=== PATIENT | female | born 1955 | race Caucasian/White ===

== ENCOUNTER → 2017-06-19 | Outpatient (CLI) | payer OTHER ==
--- NOTE | 2017-06-19 13:45 | RAD ---
2 views of the Chest 06/19/2017 2:00 AM Indication: SHORT OF AIR Comparison: Chest radiograph January 23, 2006 Findings: The lungs appear mildly hyperinflated with mild flattening of the hemidiaphragms. Bullous changes and scarring. Present the lung apices. Findings are consistent with emphysema. Bony thorax is intact. Impression: Emphysematous changes. No other acute cardiopulmonary process is identified
== END | disposition home or self-care (01) ==
LOC: DXRAD 13:27
PROVIDERS: ATTEND Nurse Practitioner
DX: J44.1 Chronic obstructive pulmonary disease with (acute) exacerbation (principal)
CPT/HCPCS: 71046

== ENCOUNTER 2019-09-07 23:20 | Inpatient (IN) | payer MEDICARE, OTHER ==
[~2019-09-07] VITALS: Ht 157.5 cm; Wt 45.6 kg
[2019-09-08] VITALS (12 sets, daily range): BP systolic 98–130; BP diastolic 64–99
[2019-09-08] MEDS ORDERED: methylPREDNISolone SOD SUCC PF 125 MG/2 ML VIAL. IV ONE
[2019-09-08] MEDS ORDERED: IV NORMAL SALINE 1,000ML 1,000 ML IV ONE
[2019-09-08] MEDS ORDERED: IV NORMAL SALINE 50ML 50 ML ONE (00:06)
[2019-09-08] MEDS ORDERED: cefTRIAXone SODIUM 1 GM VIAL ONE (00:06)
--- NOTE | 2019-09-08 00:16 | PHYS DOC ---
Past History Past Medical History: COPD Past Surgical History: Tubal ligation Alcohol Use: None General Adult EDM: Chief Complaint: FEVER HPI: HPI: Patient is a 64 year old female who presents for evaluation of fever, cough with productive green sputum and shortness of air. Onset over the past 3 days. Patient had an elevated temp of 99 7 in triage. She has a history of COPD and her oxygen sats were 86 to 90% in triage. On 2 L oxygen she was above 90%. Patient been using home nebulizer treatments and albuterol metered dose inhaler with min improvement of symptoms. Patient in mild to early moderate conversational dyspnea on arrival. There is no known obvious COVID exposure. Review of Systems: Review of Systems: Constitutional: has fever and chills Eyes: Denies change in visual acuity HENT: has nasal congestion, no sore throat Respiratory: green prod cough and shortness of breath Cardiovascular: Denies chest pain or edema GI: Denies abdominal pain, nausea, vomiting, bloody stools or diarrhea : Denies dysuria Musculoskeletal: Denies back pain or joint pain, has body aches Integument: Denies rash Neurologic: Denies headache, focal weakness or sensory changes Endocrine: Denies polyuria or polydipsia Lymphatic: Denies swollen glands Psychiatric: Denies depression or anxiety Heart Score: HEART Score for Chest Pain: HEART Score for Chest Pain Response (Comments) Value History Slighlty/Non-Suspicious 0 ECG Normal 0 Age > 65 2 Risk Factors 1 or 2 Risk Factors 1 Troponin < Normal Limit 0 Total 3 Risk Factors: Risk Factors: DM, Current or recent (<one month) smoker, HTN, HLP, family history of CAD, obesity. Risk Scores: Score 0 - 3: 2.5% MACE over next 6 weeks - Discharge Home Score 4 - 6: 20.3% MACE over next 6 weeks - Admit for Clinical Observation Score 7 - 10: 72.7% MACE over next 6 weeks - Early Invasive Strategies Current Medications: Current Meds: Current Medications Medications (Trade) Dose Ordered Sig/Angie Start Time Stop Time Status Last Admin Dose Admin Ceftriaxone Sodium 1 gm/ Sodium Chloride 50 ml @ 100 mls/hr 1X ONCE 09/08/19 00:00 09/08/19 00:29 UNV Ceftriaxone Sodium (Rocephin) 1 gm STK-MED ONCE 09/08/19 00:06 09/08/19 00:06 DC Methylprednisolone Sodium Succinate (SOLU-Medrol 125MG VIAL) 125 mg 1X ONCE 09/08/19 00:00 09/08/19 00:01 UNV Sodium Chloride 50 ml @ As Directed STK-MED ONCE 09/08/19 00:06 09/08/19 00:06 DC Allergies: Allergies: Allergies Coded Allergies Type Severity Reaction Last Updated Verified No Known Allergies Allergy Unknown 09/08/19 Yes Physical Exam: PE: Constitutional: Well developed, well nourished, moderate distress, con versational dyspnea. [] HENT: Normocephalic, atraumatic, bilateral external ears normal, oropharynx moist, no oral exudates, nose normal. [] Eyes: PERRL, EOMI, conjunctiva normal, no discharge. [] Neck: Normal range of motion, no tenderness, supple, no stridor. [] Cardiovascular:Heart rate regular rhythm, murmur [] Lungs & Thorax: Bilateral breath sounds clear diminshed but equal, wheezing present to auscultation [] Abdomen: Bowel sounds normal, soft, no tenderness, no masses, no pulsatile masses. [] Skin: Warm, dry, no erythema, no rash. [] Back: No tenderness. [] Extremities: No tenderness, no cyanosis, ROM intact, no edema. [] Neurologic: Alert and oriented X 3, normal motor function, normal sensory function, no focal deficits noted. [] Psychologic: Affect normal, judgement normal, anxious mood. [] Current Patient Data: Labs: Laboratory Tests Test 09/08/19 00:18 09/08/19 00:20 Urine Collection Type Unknown Urine Color Yellow Urine Clarity Clear Urine pH 6.5 Urine Specific [place] 1.020 Urine Protein 100 mg/dl Urine Glucose (UA) Neg mg/dL Urine Ketones (Stick) Neg mg/dL Urine Blood Trace Urine Nitrite Neg Urine Bilirubin Neg Urine Urobilinogen Dipstick 4.0 mg/dL Urine Leukocyte Esterase Trace Urine RBC Rare /HPF Urine WBC 1-4 /HPF Urine Squamous Epithelial Cells Mod /LPF Urine Bacteria Few /HPF White Blood Count 16.4 x10^3/uL Red Blood Count 4.62 x10^6/uL Hemoglobin 12.9 g/dL Hematocrit 40.1 % Mean Corpuscular Volume 87 fL Mean Corpuscular Hemoglobin 28 pg Mean Corpuscular Hemoglobin Concent 32 g/dL Red Cell Distribution Width 15.1 % Platelet Count 330 x10^3/uL Neutrophils (%) (Auto) 89 % Lymphocytes (%) (Auto) 5 % Monocytes (%) (Auto) 6 % Eosinophils (%) (Auto) 0 % Basophils (%) (Auto) 0 % Neutrophils # (Auto) 14.5 x10^3uL Lymphocytes # (Auto) 0.8 x10^3/uL Monocytes # (Auto) 1.0 x10^3/uL Eosinophils # (Auto) 0.0 x10^3/uL Basophils # (Auto) 0.0 x10^3/uL Segmented Neutrophils % 84 % Band Neutrophils % 7 % Lymphocytes % 3 % Monocytes % 6 % Platelet Estimate Adequate Sodium Level 136 mmol/L Potassium Level 3.4 mmol/L Chloride Level 97 mmol/L Carbon Dioxide Level 32 mmol/L Anion Gap 7 Blood Urea Nitrogen 7 mg/dL Creatinine 0.6 mg/dL Estimated GFR (Cockcroft-Gault) 100.0 BUN/Creatinine Ratio 12 Glucose Level 178 mg/dL Lactic Acid Level 1.2 mmol/L Calcium Level 8.8 mg/dL Total Bilirubin 0.3 mg/dL Aspartate Amino Transf (AST/SGOT) 30 U/L Alanine Aminotransferase (ALT/SGPT) 29 U/L Alkaline Phosphatase 143 U/L Troponin I Quantitative < 0.017 ng/mL Total Protein 6.6 g/dL Albumin 2.9 g/dL Albumin/Globulin Ratio 0.8 Current Medications Medications (Trade) Dose Ordered Sig/Angie Route PRN Reason Start Time Stop Time Status Last Admin Dose Admin Methylprednisolone Sodium Succinate (SOLU-Medrol 125MG VIAL) 125 mg 1X ONCE IV 09/08/19 00:00 09/08/19 00:01 UNV 09/08/19 00:00 Sodium Chloride 1,000 ml @ 75 mls/hr 1X ONCE IV 09/08/19 00:00 09/08/19 13:19 UNV 09/08/19 00:00 Ceftriaxone Sodium 1 gm/ Sodium Chloride 50 ml @ 100 mls/hr 1X ONCE IV 09/08/19 00:00 09/08/19 00:29 UNV 09/08/19 00:00 Ceftriaxone Sodium (Rocephin) 1 gm STK-MED ONCE .ROUTE 09/08/19 00:06 09/08/19 00:06 DC Sodium Chloride 50 ml @ As Directed STK-MED ONCE .ROUTE 09/08/19 00:06 09/08/19 00:06 DC Albuterol Sulfate (Ventolin) 2.5 mg 1X ONCE NEB 09/08/19 01:30 09/08/19 01:31 UNV Albuterol Sulfate (Ventolin Hfa Inhaler) 2 puff 1X ONCE INH 09/08/19 01:30 09/08/19 01:31 UNV 09/08/19 01:34 Vital Signs: Vital Signs Date Time Temp Pulse Resp B/P (MAP) Pulse Ox O2 Delivery O2 Flow Rate FiO2 09/07/19 23:30 99.7 127 24 145/100 (115) 86 Room Air EKG: EKG: EKG sinus tachycardia rate 115, read at 12:15 AM, otherwise unremarkable EKG, not STEMI [] Radiology/Procedures: Radiology/Procedures: CXR: copd changes, interstitial infilrates[] Course & Med Decision Making: Course & Med Decision Making Pertinent Labs and Imaging studies reviewed. (See chart for details) [] Dragon Disclaimer: Dragon Disclaimer: This electronic medical record was generated, in whole or in part, using a voice recognition dictation system. [id number] hospitalist service was contacted and patient will be admitted under Dr. Burks. Patient's breathing has started to worsen so albuterol metered-dose inhaler ordered. Some improvement with Solu-Medrol. Patient treated with Rocephin 0142 Dr. Burks updated on pt's breathing status. Will put her on bipap as requested. IV Zithromax has been added as well. Patient will be managed in ICU bed Departure Departure: Impression: Primary Impression: CAP (community acquired pneumonia) Additional Impressions: COPD with exacerbation Person under investigation for COVID-19 Disposition: ADMITTED INPATIENT Admitting Physician: James Burks Condition: STABLE Referrals: GURINDER AGUILERA (PCP) Justification of Admission: Justification of Admission: Justification of Admission Dx: Yes Respiratory Failure: Severe Resp Distress COVID-19 Assessment COVID-19 Patient Risks: Age 65 or older: Yes Sign of co-morbidity: Yes Exp to person + for COVID: No Exp to PUI: No Travel from affected area: No Lower respiratory symptoms: Yes Fever: Yes Other: No PPE Use: Full PPE with N95 mask or PAPR: Yes (gloves and face shield) Critical Care Time Critical care time was 30 minutes exclusive of procedures. QUINCY OWENS DO Sep 08, 2019 00:16
[2019-09-08 01:10] LABS: BASO % 0 % (0-3); EOS % 0 % (0-3); HEMATOCRIT 40.1 % (36.0-47.0); HEMOGLOBIN 12.9 g/dL (12.0-15.5); LYMPH # 0.8 x10^3/uL (1.0-4.8); LYMPH % 5 % (24-48); MEAN CORPUSCULAR HEMOGLOBIN 28 pg (25-35); MEAN CORPUSCULAR HGB CONC 32 g/dL (31-37); MEAN CORPUSCULAR VOLUME 87 fL (79-100); MONO % 6 % (0-9); NEUT # 14.5 x10^3uL (1.8-7.7); NEUT % 89 % (31-73); PLATELET COUNT 330 x10^3/uL (140-400); RED BLOOD COUNT 4.62 x10^6/uL (3.50-5.40); RED CELL DISTRIBUTION WIDTH 15.1 % (11.5-14.5); WHITE BLOOD COUNT 16.4 x10^3/uL (4.0-11.0)
[2019-09-08 01:17] LABS: CALCIUM 8.8 mg/dL (8.5-10.1); CREATININE 0.6 mg/dL (0.6-1.0); POTASSIUM 3.4 mmol/L (3.5-5.1)
[2019-09-08 01:20] LABS: BACTERIA,URINE FEW /HPF (0-FEW); BILIRUBIN,URINE NEG (NEG); CLARITY,URINE CLEAR; COLOR,URINE YELLOW; GLUCOSE,URINE NEG (NEG); NITRITE,URINE NEG (NEG); RBC,URINE RARE /HPF (0-2); SQUAMOUS EPITHELIAL CELL,UR MOD /LPF
[2019-09-08] MEDS ORDERED: ALBUTEROL SULFATE 8GM INHALER. INH ONE (01:30)
[2019-09-08 01:32] LABS: ALBUMIN 2.9 g/dL (3.4-5.0); ALBUMIN/GLOBULIN RATIO 0.8 (1.0-1.7); TOTAL BILIRUBIN 0.3 mg/dL (0.2-1.0); TOTAL PROTEIN 6.6 g/dL (6.4-8.2)
[2019-09-08 01:40] LABS: % BANDS 7 % (0-9); % LYMPHS 3 % (24-48); % MONOS 6 % (0-10); % SEGS 84 % (35-66); PLT ESTIMATE ADEQUATE (ADEQUATE)
[2019-09-08] MEDS ORDERED: ALBUTEROL SULFATE 2.5 MG/3 ML NEBU. NEB ONE (01:45)
[2019-09-08] MEDS ORDERED: AZITHROMYCIN 500 MG in IV NORMAL SALINE 250ML 250 ML IV ONE (02:00)
[2019-09-08] MEDS ORDERED: ONDANSETRON PF 4 MG/2 ML VIAL. IVP PRN (02:00)
[2019-09-08] MEDS ORDERED: IV NORMAL SALINE 250ML 250 ML ONE (02:20)
[2019-09-08] MEDS ORDERED: AZITHROMYCIN 500 MG VIAL. IV ONE (02:20)
[2019-09-08 02:32] LABS: BGAS PH 7.42 (7.35-7.45)
--- NOTE | 2019-09-08 02:41 | RAD ---
EXAM: CHEST ONE VIEW. HISTORY: Shortness of breath, cough. COMPARISON: 06/10/2018. FINDINGS: A frontal view of the chest is obtained. Hyperinflation is consistent with chronic obstructive pulmonary disease. There are mild interstitial opacities in the left base and perihilar regions. There is no pneumothorax or pleural effusion. The heart is not enlarged. IMPRESSION: 1. Correlate for atypical pneumonia or mild pulmonary edema superimposed on chronic obstructive pulmonary disease. Electronically signed by: Micheal Cortes MD (09/08/2019 2:38 AM) [facility]
[2019-09-08] MEDS ORDERED: ALBU2.5V8 IH (03:38)
[2019-09-08] MEDS ORDERED: ALBU2.5V8 INH (03:38)
--- NOTE | 2019-09-08 05:06 | EKG ---
[address] [address] Test Date: 2019-09-08 Test Time: 00:10:49 Pat Name: JUSTICE FERNANDEZ Department: Room: Gender: F Fudger: : 1955 Requested By: QUINCY OWENS Order Number: [id number] Reading MD: Measurements Intervals [place] Rate: 115 P: 66 LA: 140 QRS: 90 QRSD: 98 T: 69 QT: 290 QTc: 403 Interpretive Statements SINUS TACHYCARDIA OTHERWISE NORMAL ECG RI6.02 No previous ECG available for comparison
[2019-09-08] MEDS ORDERED: POTASSIUM CHLORIDE 20 MEQ TABLET.ER. PO ONE (08:30)
[2019-09-08] MEDS ORDERED: ALBUTEROL SULFATE 2.5 MG/3 ML NEBU. NEB PRN (14:45)
--- NOTE | 2019-09-08 14:48 | HP ---
ADMIT DATE: 09/08/2019 HISTORY OF PRESENT ILLNESS: The patient is a 64-year-old female patient who came to the Emergency Room complaining of fever, cough with yellowish to greenish sputum and shortness of breath that has been going on for the last 3 days. The patient is known to have history of COPD. On arrival, her oxygen was only 86% on 2 liters of oxygen. She was above 90%. The patient has been using her home nebulizer treatment and albuterol metered dose inhaler with minimal improvement of her symptoms. When she came to the Emergency Room, she was unable to finish sentence. She has no known obvious COVID exposure. She apparently works for [employer] and [employer] and has been exposed to dust. She has never been on oxygen at home, never had any sleep study, was admitted before once for pneumonia which never required any intubation and mechanical ventilation. She was evaluated in the Emergency Room and was found to be obviously hypoxic on room air, temperature was slightly elevated at 99.7. She has leukocytosis, white cell count of 16,400. Her blood gases were unremarkable. Her chemistry was also unremarkable. Lactic acid is only 1.2. Her urinalysis was also unremarkable; however, her chest x-ray showed that she has interstitial opacities in the left base and perihilar region consistent with atypical pneumonia or mild pulmonary edema. The patient was admitted, diagnosed with acute hypoxic respiratory failure, community-acquired pneumonia and COPD exacerbation. PAST MEDICAL HISTORY: Significant for COPD. No other medical problems. PAST SURGICAL HISTORY: Significant for tubal ligation. ALLERGIES: She has no known drug allergies. MEDICATIONS: She is currently on albuterol sulfate 1 puff every 4 hours. FAMILY HISTORY: Noncontributory. SOCIAL HISTORY: She lives alone, has 4 children, one of them lives around here. She does not smoke, does not drink alcohol or use any recreational drugs. REVIEW OF SYSTEMS: As per history of present illness. PHYSICAL EXAMINATION: GENERAL: When I examined her, she looked slightly tachypneic and somewhat cachectic. There is no pallor, jaundice, cyanosis or thyromegaly. No jugular venous distention. No lower limb edema. VITAL SIGNS: Her heart rate on arrival was 127, blood pressure was 145/100, temperature was 99.7, respiratory rate 24 and oxygen saturation was 86% on room air that improved to 99% on 2 liters of oxygen. HEAD, EYES, EARS, NOSE AND THROAT: Showed normocephalic, atraumatic. NECK: Supple. CARDIAC: Normal first and second heart sounds. No gallop or murmur. CHEST: Shows central trachea, equally reduced expansion, reduced air entry, expands with crepitation mostly in the left side posteriorly. She has bilateral scattered rhonchi. ABDOMEN: Scaphoid, soft, nontender. NEUROLOGIC: She is awake, alert, responding appropriately. All cranial nerves intact. EXTREMITIES: She moves extremities without difficulty, although she has marked muscle wasting and weakness. LABORATORY DATA: Her white cell count was 16,400, hemoglobin 12.9, hematocrit 40, MCV 87 and platelet count 330,000. Serum sodium was 136, potassium 3.4, chloride 97, bicarbonate 32, anion gap of 7, BUN 7, creatinine 0.6, estimated GFR was 100 mL per minute. Her glucose 178, calcium was 8.8. Total bilirubin, AST, ALT normal. Alkaline phosphatase slightly elevated. Troponin was less than 0.017. Total protein was 6.6, albumin was 2.9. Her blood gases showed a pH of 7.42, pCO2 of 40, pO2 of 85, bicarbonate 26 and oxygen saturation was 97% on FiO2 of 28%. Her urinalysis showed the urine was yellow, clear with a pH of 6.5, specific gravity 1.020. There was large amount of protein. The urine was negative for glucose, ketones. There was trace of blood, negative for nitrite and bilirubin, trace of leukocyte esterase, rare rbc's, 1-4 wbc's, very few bacteria. Her chest x-ray showed that the patient has hyperinflation consistent with chronic obstructive pulmonary disease. There are mild interstitial opacities in the left base and perihilar region. There is no pneumothorax or pleural effusion. The heart is not enlarged. ASSESSMENT AND PLAN: The patient was admitted with community-acquired pneumonia, acute hypoxic respiratory failure and chronic obstructive pulmonary disease exacerbation. She was treated with ceftriaxone and Zithromax, did receive methylprednisolone, sodium succinate 125 mg once. Plan is to continue with IV antibiotic. Continue with bronchodilator. Continue with steroids. PALMIRA REN MD DR: BRITTNI/carlos JOB#: [id number] / [id number]
[2019-09-08] MEDS ORDERED: IPRATRPIUM/ALBUTEROL 0.5/2.5MG 3 ML NEBU. NEB SCH (16:00)
[2019-09-08] MEDS ORDERED: ALBUTEROL SULFATE 8GM INHALER. INH PRN (16:00)
[2019-09-08] MEDS ORDERED: methylPREDNISolone SOD SUCC PF 40 MG/ML VIAL. IV ONE (18:00)
[2019-09-08] MEDS: IPRATROPIUM/ALBUTEROL 20/100mcg/INH INHALER. INH SCH ×2 (18:44→21:04)
[2019-09-08] MEDS: MONTELUKAST 10 MG TABLET. PO SCH (21:06)
[2019-09-08] MEDS: methylPREDNISolone SOD SUCC PF 40 MG/ML VIAL. IV SCH (21:06)
[2019-09-08] MEDS: LACTOBACILLUS RHAMNOSUS GG 1 CAPSULE. PO SCH (21:06)
[2019-09-09 00:51] VITALS: BP 119/71
[2019-09-09 04:57] LABS: HEMATOCRIT 38.8 % (36.0-47.0); HEMOGLOBIN 12.5 g/dL (12.0-15.5); RED BLOOD COUNT 4.44 x10^6/uL (3.50-5.40); RED CELL DISTRIBUTION WIDTH 14.9 % (11.5-14.5); WHITE BLOOD COUNT 16.3 x10^3/uL (4.0-11.0)
[2019-09-09 05:06] LABS: CALCIUM 8.9 mg/dL (8.5-10.1); CREATININE 0.7 mg/dL (0.6-1.0); GFR 83.7; POTASSIUM 4.2 mmol/L (3.5-5.1)
[2019-09-09 05:58] VITALS: BP 122/78
[2019-09-09] MEDS: methylPREDNISolone SOD SUCC PF 40 MG/ML VIAL. IV SCH ×3 (06:09→21:28)
[2019-09-09] MEDS: LACTOBACILLUS RHAMNOSUS GG 1 CAPSULE. PO SCH ×2 (07:41→21:28)
[2019-09-09] MEDS: AZITHROMYCIN 250 MG TABLET. PO SCH (07:41)
[2019-09-09] MEDS: IPRATROPIUM/ALBUTEROL 20/100mcg/INH INHALER. INH SCH ×2 (07:41→12:15)
[2019-09-09 11:07] VITALS: BP 134/77
[2019-09-09 14:28] VITALS: BP 127/76
[2019-09-09] MEDS: IPRATRPIUM/ALBUTEROL 0.5/2.5MG 3 ML NEBU. NEB SCH ×2 (16:21→20:39)
--- NOTE | 2019-09-09 19:23 | PN ---
DATE: 09/09/2019 SUBJECTIVE: The patient is resting slightly propped up in bed, slightly tachypneic. On questioning her, she continued to have cough with yellowish sputum. Denied any chest pain, denied any chills, rigors, or fever. Denied any orthopnea or paroxysmal nocturnal dyspnea. PHYSICAL EXAMINATION: GENERAL: When I examined her, she was resting slightly propped up in bed, in no apparent respiratory distress. No pallor, jaundice, cyanosis or thyromegaly. No jugular venous distension. No lower limb edema. VITAL SIGNS: Her heart rate was 90, blood pressure was 127/76, temperature was 96.9, respiratory rate was 24, and oxygen saturation was 97% on 2 liters of oxygen. HEAD, EYES, EARS, NOSE AND THROAT: Showed she is normocephalic, atraumatic. NECK: Supple. HEART: Showed normal first and second heart sounds. No gallop or murmur. CHEST: Shows central trachea, equal bilateral expansion, air entry expands with crepitation mostly in the left side posteriorly. She has also scattered rhonchi definitely less than yesterday. ABDOMEN: Slightly distended, soft, nontender. NEUROLOGIC: She is awake, alert, responding appropriately. All cranial nerves are intact. She moves extremities without difficulty. LABORATORY DATA: Her lab work this morning showed a white cell count of 16,300, hemoglobin 12.5, hematocrit 38.8, MCV 87 and platelet count of 374,000. Her chemistry showed a serum sodium 140, potassium 4.2, chloride 104, bicarbonate 30, anion gap of 6, BUN 12, creatinine 0.7, estimated GFR was 84 mL per minute. Her glucose 183, calcium was 8.9. Her COVID-19 by PCR was not detected. Urinalysis was unremarkable. Her chest x-ray showed atypical pneumonia, mild pulmonary edema, superimposed on chronic obstructive pulmonary disease. ASSESSMENT: 1. Acute hypoxic respiratory failure. 2. Chronic obstructive pulmonary disease exacerbation. 3. Community-acquired pneumonia. PLAN: To continue with IV Solu-Medrol 60 mg IV every 8 hours. Continue with ceftriaxone 1 g IV daily together with Zithromax 250 mg daily. She is on montelukast 10 mg once a day and albuterol sulfate by nebulizer every 2 hours, DuoNeb 4 times a day. PALMIRA REN MD DR: Nickolas JOB#: [id number] / [id number]
[2019-09-09 20:02] VITALS: BP 147/83
[2019-09-09] MEDS: MONTELUKAST 10 MG TABLET. PO SCH (21:28)
[2019-09-09] MEDS ORDERED: ACETAMINOPHEN 325 MG TABLET PO PRN (22:30)
[2019-09-10 00:34] VITALS: BP 158/81
[2019-09-10] MEDS: IPRATRPIUM/ALBUTEROL 0.5/2.5MG 3 ML NEBU. NEB SCH ×4 (05:28→20:43)
[2019-09-10] MEDS: methylPREDNISolone SOD SUCC PF 40 MG/ML VIAL. IV SCH ×3 (06:00→20:43)
[2019-09-10 06:04] VITALS: BP 133/81
[2019-09-10 06:05] LABS: HEMATOCRIT 40.1 % (36.0-47.0); HEMOGLOBIN 12.8 g/dL (12.0-15.5); RED BLOOD COUNT 4.6 x10^6/uL (3.50-5.40); RED CELL DISTRIBUTION WIDTH 14.8 % (11.5-14.5); WHITE BLOOD COUNT 16.2 x10^3/uL (4.0-11.0)
[2019-09-10 06:20] LABS: CALCIUM 8.7 mg/dL (8.5-10.1); CREATININE 0.7 mg/dL (0.6-1.0); GFR 83.7; POTASSIUM 4.1 mmol/L (3.5-5.1)
[2019-09-10] MEDS: AZITHROMYCIN 250 MG TABLET. PO SCH (08:45)
[2019-09-10] MEDS: LACTOBACILLUS RHAMNOSUS GG 1 CAPSULE. PO SCH ×2 (08:45→20:43)
--- NOTE | 2019-09-10 10:27 | RAD ---
EXAM: CHEST PA LATERAL 09/10/2019 8:00 AM CLINICAL INDICATION:Acute hypoxic respiratory failure COMPARISON:Chest radiograph 2019 TECHNIQUE:PA and lateral views of the chest FINDINGS:The heart is normal size. Central pulmonary arteries are prominent, unchanged. The lungs are hyperexpanded. Bilateral interstitial prominence has decreased. There are decreased but persistent mild interstitial opacities in the left lung base and left costophrenic sulcus. No pleural effusion or pneumothorax. No acute osseous abnormality. IMPRESSION:Decreased but persistent mild interstitial opacities in the left lung base. COPD. Electronically signed by: Nivia Hoffmann MD (09/10/2019 10:24 AM) [id number]
[2019-09-10 10:41] VITALS: BP 156/89
--- NOTE | 2019-09-10 13:11 | RAD ---
PQRS Compliance Statement: One or more of the following individualized dose reduction techniques were utilized for this examination: 1. Automated exposure control 2. Adjustment of the mA and/or kV according to patient size 3. Use of iterative reconstruction technique CT CHEST WO CONTRAST 09/10/2019 12:20 PM Indication: Worsening shortness of breath COMPARISON: None available. TECHNIQUE: Multiple axial CT images of the chest were obtained without venous contrast. Coronal and sagittal reformats are provided. FINDINGS: Nodular consolidative process in the right lung apex most favors scarring, stable from 01/20/2006. There is moderate centrilobular pulmonary emphysema. Tree-in-bud nodular airspace disease noted in the left lower lobe and to a lesser extent right lower lobe. Similar findings are identified previously seen 2005. No new or enlarging solid noncalcified pulmonary nodules. No pleural effusions, pulmonary vascular congestion or pneumothorax. Thyroid gland is normal in appearance. Precarinal lymph node measures 11 mm. Ascending thoracic aorta measures 4.0 cm, ectatic. Heart size within normal limits. Visualized portions of the upper abdomen are within normal limits within the limitations of noncontrast examination. No suspicious osseous abnormality is identified. IMPRESSION: 1. Moderate centrilobular pulmonary emphysema with hyperinflation lungs compatible COPD changes. 2. No new or enlarging solid noncalcified pulmonary nodules identified. 3. Tree-in-bud nodular airspace disease noted in the lower lobes bilaterally. Differential considerations include small airways inflammation versus respiratory bronchiolitis interstitial lung disease. 4. Ectasia of the ascending thoracic aorta measuring up to 4.0 cm. Electronically signed by: Shruthi Quispe MD (09/10/2019 1:09 PM) [facility]
[2019-09-10 15:20] VITALS: BP 147/83
--- NOTE | 2019-09-10 16:27 | PN ---
DATE: 09/10/2019 SUBJECTIVE: The patient is resting, slightly propped up in bed, in no apparent distress. She continued to be somewhat tachypneic. She stated that she had cough the whole night, though the cough is dry. She stated that she is feeling much better. She continued to require oxygen. OBJECTIVE: GENERAL: When I saw her today, she was slightly tachypneic, but there was no pallor, jaundice, cyanosis, thyromegaly, jugular venous distention. No limb edema. VITAL SIGNS: Her heart rate was 95, blood pressure 156/89, temperature was 98.3, respiratory rate was 22 and oxygen saturation was 95% on 2 liters of oxygen. HEAD, EYES, EARS, NOSE AND THROAT: Normocephalic, atraumatic. NECK: Supple. HEART: Showed normal first and second heart sounds. No gallop, rub or murmur. CHEST: Showed central trachea, equally reduced expansion, reduced air entry, vesicular sounds. I could not really appreciate any crepitation or rhonchi. ABDOMEN: Distended, soft, nontender. NEUROLOGIC: She is awake, alert, responding appropriately. All cranial nerves intact. She moves extremities without difficulty. She is grossly intact. Her intake was 1630, output was incompletely recorded. LABORATORY DATA: Her lab work this morning showed a white cell count of 16,200, hemoglobin 12.8, hematocrit 40, MCV 87 and platelet count of 455,000. Her chemistry showed a serum sodium 140, potassium 4.1, chloride 103, bicarbonate 32, anion gap of 5, BUN 12, creatinine 0.7. Estimated GFR was 84 mL per minute. Her glucose was 139 and calcium was 8.7. Her COVID-19 by PCR not detected and urinalysis was essentially unremarkable. Her blood cultures are so far negative and showed no growth after 2 days. ASSESSMENT: 1. Community-acquired pneumonia, for which she continues to be on ceftriaxone and Zithromax. 2. Chronic obstructive pulmonary disease exacerbation, for which she is on steroids and inhaler as well as Singulair and added Mucinex. 3. Acute hypoxic respiratory failure. The patient continued to be tachypneic requiring 2 liters of oxygen. Her chest x-ray, PA and lateral views showed that the patient's heart size is normal. Central pulmonary arteries are prominent, unchanged. The lungs are hyperexpanded. She has bilateral interstitial prominence. Her bilateral interstitial prominence has decreased, but persistent mild interstitial opacities in the left lung base and left costophrenic sulcus. No pleural effusion or pneumothorax. No acute osseous abnormality. PLAN: I added Mucinex. We will continue with all other medications. The patient does not seem to be ready to go home given the tachypnea and hypoxia. I will arrange for her to have a CT angio of the chest and would decide on further management accordingly. PALMIRA REN MD DR: BRITTNI/carlos JOB#: [id number] / [id number]
[2019-09-10 19:24] VITALS: BP 158/90
[2019-09-10] MEDS: MONTELUKAST 10 MG TABLET. PO SCH (20:43)
[2019-09-10 22:21] VITALS: BP 157/90
[2019-09-11] MEDS: IPRATRPIUM/ALBUTEROL 0.5/2.5MG 3 ML NEBU. NEB SCH ×4 (05:29→20:23)
[2019-09-11 05:34] VITALS: BP 145/85
[2019-09-11] MEDS: methylPREDNISolone SOD SUCC PF 40 MG/ML VIAL. IV SCH ×2 (05:36→14:18)
[2019-09-11] MEDS: AZITHROMYCIN 250 MG TABLET. PO SCH (09:09)
[2019-09-11] MEDS: LACTOBACILLUS RHAMNOSUS GG 1 CAPSULE. PO SCH ×2 (09:09→20:59)
[2019-09-11 10:49] VITALS: BP 149/87
[2019-09-11 11:42] LABS: BASO # 0.1 x10^3/uL (0.0-0.2); BASO % 0 % (0-3); EOS % 0 % (0-3); HEMATOCRIT 43.3 % (36.0-47.0); HEMOGLOBIN 14.3 g/dL (12.0-15.5); LYMPH # 0.8 x10^3/uL (1.0-4.8); LYMPH % 5 % (24-48); MEAN CORPUSCULAR HEMOGLOBIN 29 pg (25-35); MEAN CORPUSCULAR HGB CONC 33 g/dL (31-37); MEAN CORPUSCULAR VOLUME 87 fL (79-100); MONO # 0.9 x10^3/uL (0.0-1.1); MONO % 6 % (0-9); NEUT # 14.6 x10^3uL (1.8-7.7); NEUT % 89 % (31-73); PLATELET COUNT 534 x10^3/uL (140-400); RED CELL DISTRIBUTION WIDTH 15.2 % (11.5-14.5); WHITE BLOOD COUNT 16.3 x10^3/uL (4.0-11.0)
[2019-09-11 11:55] LABS: ALBUMIN 2.9 g/dL (3.4-5.0); ALBUMIN/GLOBULIN RATIO 0.7 (1.0-1.7); CALCIUM 9.1 mg/dL (8.5-10.1); CREATININE 0.8 mg/dL (0.6-1.0); GFR 71.8; POTASSIUM 4.3 mmol/L (3.5-5.1); TOTAL BILIRUBIN 0.2 mg/dL (0.2-1.0); TOTAL PROTEIN 7.2 g/dL (6.4-8.2)
[2019-09-11 15:00] VITALS: BP 146/90
[2019-09-11 16:24] LABS: BGAS PH 7.45 (7.35-7.45)
[2019-09-11] MEDS: methylPREDNISolone SOD SUCC PF 125 MG/2 ML VIAL. IV SCH ×2 (16:52→21:55)
[2019-09-11 18:52] VITALS: BP 145/82
--- NOTE | 2019-09-11 19:05 | RAD ---
Nuclear medicine perfusion lung scan HISTORY: Shortness of breath. TECHNIQUE: 5.5 mCi technetium 99m macroaggregated albumin intravenous. No ventilation imaging was acquired per COVID 19 pandemic protocol. COMPARISON: CT chest and chest x-ray September 10, 2019. FINDINGS: Absence of ventilatory imaging decreases the ability to risk stratify perfusion defects. There are bilateral apical upper lobe moderate perfusion defects. There is mild mottled perfusion elsewhere throughout the upper, mid and lower lung zones without additional definable defects evident. These apical perfusion defects are indeterminate without corresponding ventilatory imaging. Using modified PIOPED criteria if these were matched V/Q defects this would be low probability for PE, if these were mismatched VQ defects these may be high probability for PE. Given that they are both apical in location, this may favor a lower probability although this is not definitive. Correlation with CT angiographic chest imaging would be of benefit for more definitive characterization. IMPRESSION: Bilateral apical segmental perfusion defects as described above. Electronically signed by: Fabian Latham MD (09/11/2019 7:02 PM) [facility]
--- NOTE | 2019-09-11 19:46 | PN ---
DATE: 09/11/2019 SUBJECTIVE: The patient is resting slightly propped up in bed, continued to be clearly tachypneic, although she states that she is feeling much better. She is clearly tachypneic, using pursed-lip breathing and on 2 liters oxygen, doing only 94%. PHYSICAL EXAMINATION: GENERAL: When I examined her, she looked cachectic. There is no pallor, jaundice, cyanosis or thyromegaly. No jugular venous distention. No lower limb edema. VITAL SIGNS: Her heart rate was 108, blood pressure was 146/90, temperature was 98, respiratory rate 24 and oxygen saturation was 94% on 2 liters of oxygen. HEAD, EYES, EARS, NOSE AND THROAT: Showed normocephalic, atraumatic. NECK: Supple. HEART: Showed normal first and second heart sounds. No gallop or murmur. CHEST: Shows central trachea, equally reduced expansion, reduced air entry, vesicular sounds with diffuse rhonchi. I could not appreciate any crepitation. ABDOMEN: Distended, soft, nontender. NEUROLOGIC: She is awake, alert, responding appropriately. All cranial nerves intact. She moves extremities without difficulty. She is cachectic. LABORATORY DATA: Her lab work this morning showed a white cell count of 16,300, hemoglobin 14, hematocrit 43, MCV was 87 and platelet count of 534,000 with normal manual differential. Her chemistry showed a serum sodium 135, potassium 4.3, chloride 98, bicarbonate 31, anion gap of 6, BUN 16, creatinine was 0.8, estimated GFR was 71 mL per minute. Her glucose was 105, calcium was 9.1. Total bilirubin is normal. AST, ALT, alkaline phosphatase is slightly elevated. Total protein is 7.2 and albumin 2.9. Urinalysis was essentially unremarkable. Her COVID-19 PCR was not detected. I did a CT scan of the chest yesterday without contrast as she IS ALLERGIC TO IODINE, showed moderate centrilobular pulmonary emphysema with hyperinflation. Lungs are compatible with COPD. There is no new enlarging solid noncalcified pulmonary nodule identified, tree-in-bud nodular airspace disease noted in the lower lobes bilaterally. Differential consideration includes small airways inflammation versus respiratory bronchiolitis, interstitial lung disease, and ectasia of the ascending thoracic aorta measuring up to 4 cm. PLAN: My plan is to arrange for her to have V/Q scan tomorrow. I have increased her Solu-Medrol to 60 mg IV q. 8 hourly. I added Pulmicort. I will check her stat blood gases and if she is retaining carbon dioxide, we might have to consider sending her to [facility]. I will definitely consult the franchise business consultant if she continued to not show any improvement. PALMIRA REN MD DR: BRITTNI/carlos JOB#: [id number] / [id number]
[2019-09-11] MEDS: BUDESONIDE 0.5 MG/2 ML NEBU NEB SCH (20:23)
[2019-09-11] MEDS: MONTELUKAST 10 MG TABLET. PO SCH (20:59)
[2019-09-11 22:45] VITALS: BP 118/82
[2019-09-12 05:12] VITALS: BP 126/81
[2019-09-12] MEDS: IPRATRPIUM/ALBUTEROL 0.5/2.5MG 3 ML NEBU. NEB SCH ×4 (05:14→20:32)
[2019-09-12] MEDS: methylPREDNISolone SOD SUCC PF 125 MG/2 ML VIAL. IV SCH ×3 (05:51→22:17)
[2019-09-12] MEDS: LACTOBACILLUS RHAMNOSUS GG 1 CAPSULE. PO SCH ×2 (07:52→20:19)
[2019-09-12] MEDS: AZITHROMYCIN 250 MG TABLET. PO SCH (07:52)
[2019-09-12 08:20] LABS: HEMATOCRIT 42.1 % (36.0-47.0); HEMOGLOBIN 13.5 g/dL (12.0-15.5); RED BLOOD COUNT 4.87 x10^6/uL (3.50-5.40); RED CELL DISTRIBUTION WIDTH 14.8 % (11.5-14.5); WHITE BLOOD COUNT 20.4 x10^3/uL (4.0-11.0)
[2019-09-12 08:34] LABS: ALBUMIN 2.6 g/dL (3.4-5.0); ALBUMIN/GLOBULIN RATIO 0.7 (1.0-1.7); CALCIUM 8.5 mg/dL (8.5-10.1); CREATININE 0.9 mg/dL (0.6-1.0); GFR 62.6; POTASSIUM 4.5 mmol/L (3.5-5.1); TOTAL BILIRUBIN 0.1 mg/dL (0.2-1.0); TOTAL PROTEIN 6.3 g/dL (6.4-8.2)
[2019-09-12] MEDS: BUDESONIDE 0.5 MG/2 ML NEBU NEB SCH ×2 (10:31→20:32)
[2019-09-12 10:56] VITALS: BP 132/83
--- NOTE | 2019-09-12 15:30 | PN ---
DATE: 09/12/2019 SUBJECTIVE: The patient is resting, almost flat in bed today, no apparent respiratory distress. She looks tachypneic. PHYSICAL EXAMINATION: GENERAL: When I examined her, she looked somewhat pale, but not jaundiced, cyanosed from thyromegaly. No jugular venous distention. No limb edema. VITAL SIGNS: Her heart rate was 104, blood pressure was 132/83, temperature was 98.2, respiratory rate was 22 and oxygen saturation was 95% on 2 liters of oxygen. HEAD, EYES, EARS, NOSE AND THROAT: Showed normocephalic, atraumatic. NECK: Supple. HEART: Showed normal first and second heart sounds. No gallop, rub or murmur. CHEST: Showed central trachea, equally reduced expansion, reduced air entry, vesicular breath sounds. I could not appreciate any crepitation or rhonchi. ABDOMEN: Distended, soft, nontender. NEUROLOGIC: She is awake, alert, responding appropriately. All cranial nerves intact. She moves extremities without difficulty. She ambulates without assistance or assistive devices. Her intake was 770, no output was recorded. LABORATORY DATA: Her lab work this morning showed a white cell count of 20,400, hemoglobin 13.5, hematocrit 42, MCV 87 and a platelet count 549,000. Serum sodium was 138, potassium 4.5, chloride 101, bicarbonate 33, anion gap of 4, BUN 17, creatinine 0.9, estimated GFR was 62 mL per minute. Her glucose 137, calcium was 8.5. Total bilirubin, AST, ALT, alkaline phosphatase slightly elevated. Total protein was 6.3, albumin was 2.6. We did a V/Q scan, which basically showed bilateral apical segmental perfusion defects as described with the conclusion that the V/Q scan favors lower probability; although it is not definite, correlation with CT angiographic chest imaging would be of benefit. Unfortunately, THE PATIENT IS ALLERGIC TO CONTRAST. CT scan of the chest showed moderate centrilobular pulmonary emphysema with hyperinflated lungs compatible with COPD changes. ASSESSMENT: 1. Community-acquired pneumonia. 2. Acute chronic obstructive pulmonary disease exacerbation. 3. Acute hypoxic respiratory failure. PLAN: To continue with the steroids, antibiotics and nebulized treatment. We will arrange for her to have a 6-minute walk tomorrow and we will consult with our case management rn to see whether she qualifies for CPAP or BiPAP at nighttime. PALMIRA REN MD DR: Nickolas JOB#: [id number] / [id number]
[2019-09-12 15:56] VITALS: BP 125/79
[2019-09-12 19:11] VITALS: BP 139/83
[2019-09-12] MEDS: MONTELUKAST 10 MG TABLET. PO SCH (20:19)
[2019-09-12 22:09] VITALS: BP 119/75
[2019-09-13] MEDS: IPRATRPIUM/ALBUTEROL 0.5/2.5MG 3 ML NEBU. NEB SCH ×3 (05:10→16:08)
[2019-09-13 05:20] VITALS: BP 126/80
[2019-09-13] MEDS: methylPREDNISolone SOD SUCC PF 125 MG/2 ML VIAL. IV SCH ×2 (05:47→13:50)
[2019-09-13] MEDS: LACTOBACILLUS RHAMNOSUS GG 1 CAPSULE. PO SCH (07:54)
[2019-09-13] MEDS: AZITHROMYCIN 250 MG TABLET. PO SCH (07:55)
[2019-09-13 10:28] VITALS: BP 129/72
[2019-09-13] MEDS: BUDESONIDE 0.5 MG/2 ML NEBU NEB SCH (10:59)
[2019-09-13 15:15] VITALS: BP 129/76
[2019-09-13] MEDS ORDERED: CEFD300C PO (17:01)
[2019-09-13] MEDS ORDERED: MONT10TA80 PO (17:01)
[2019-09-13] MEDS ORDERED: IPRA3AMP29 NEB (17:01)
[2019-09-13] MEDS ORDERED: PRED20TA PO (17:01)
--- NOTE | 2019-09-13 18:49 | DS ---
DATE OF DISCHARGE: 09/13/2019 HOSPITAL COURSE: The patient is a 64-year-old female patient who was admitted with worsening shortness of breath, cough with greenish sputum that has been going on for 3 days prior to admission. She was hypoxic on arrival at 86%. She was started on IV antibiotic, IV steroids; however, she continued to be very slow to respond. I did a CT scan of the chest without protocol, which was unremarkable and V/Q scan showed low probability and she gradually improved, her wheezing has largely subsided, although she has continued to be somewhat tachypneic with a 6-minute walk and she qualified for home oxygen. PHYSICAL EXAMINATION: GENERAL: When I saw her this afternoon, she looked well and was clearly in no apparent respiratory distress. No pallor, jaundice, cyanosis or thyromegaly. No jugular venous distention. No limb edema. VITAL SIGNS: Her heart rate was 85, blood pressure was 129/76, temperature 98.3, respiratory rate was 20, and oxygen saturation was 96% on 2 liters of oxygen. HEAD, EYES, EARS, NOSE AND THROAT: Showed normocephalic, atraumatic. NECK: Supple. HEART: Showed normal first and second heart sounds. No gallop, rub or murmur. CHEST: Clear to auscultation. No crepitation or rhonchi. ABDOMEN: Distended, soft, nontender. NEUROLOGIC: She was awake, alert, responding appropriately. All cranial nerves intact. She moves extremities without difficulty. Her intake was 890, no output was recorded. LABORATORY DATA: This morning showed a white cell count of 20,000, hemoglobin 13.5, hematocrit 42, MCV 87 and platelet count 549,000. Her chemistry showed a serum sodium 138, potassium 4.5, chloride 101, bicarbonate 33, anion gap of 4, BUN 17, creatinine 0.9, estimated GFR was 62 mL per minute. Her glucose 137, calcium was 8.5. Total bilirubin, AST, ALT, alkaline phosphatase slightly elevated. Total protein 6.3, albumin 2.6. DISCHARGE MEDICATIONS: The patient was discharged home to continue on cefdinir 300 mg twice a day for 5 more days, DuoNeb 3 mL by nebulizer 4 times a day, Singulair 10 mg once a day, and prednisone in a tapering course. FINAL DISCHARGE DIAGNOSES: 1. Community-acquired pneumonia, treated with Zithromax and cefdinir. 2. Acute chronic obstructive pulmonary disease exacerbation. 3. Acute probably on chronic respiratory failure. The patient was discharged home to continue with tapering course of steroids. She also qualified for home oxygen. PALMIRA REN MD DR: BRITTNI/carlos JOB#: [id number] / [id number]
== END 2019-09-13 18:19 | disposition home health service (06) | DRG 871 ==
LOC: ER 23:20 → 1 SOUTH 09-08 01:46
PROVIDERS: ADMIT Hospitalist; ATTEND Internal Medicine
DX: A41.9 Sepsis, unspecified organism (principal); J18.9 Pneumonia, unspecified organism; J96.21 Acute and chronic respiratory failure with hypoxia; J44.0 Chronic obstructive pulmonary disease with (acute) lower respiratory infection; J44.1 Chronic obstructive pulmonary disease with (acute) exacerbation; Z60.2 Problems related to living alone; Z20.828 Contact with and (suspected) exposure to other viral communicable diseases; Z98.51 Tubal ligation status; Z91.041 Radiographic dye allergy status
CPT/HCPCS: 36415; 36600; 71045; 71046; 71250; 78580; 80048; 80053; 81001; 82803; 83605; 84484; 85007; 85025; 85027; 87040; 87299; 93005; 94618; 94640; 94660; 96365; 96367; 96374; 96375; A9540; J0456; J0696; J2920; J2930; J7050; J7613; 99291-25; J7030